=== PATIENT | female | born 1985 | race Caucasian/White ===

== ENCOUNTER → 2016-06-05 | Outpatient (CLI) | payer BC ==
[~2016-06-05] MED LIST: CHOL4POW6 PO; METR500T PO; PANT40TA PO; SERT50TA PO; ZNTT/150 PO
[2016-06-05 12:49] LABS: BLOOD UREA NITROGEN 11 mg/dl (7-18); CALCIUM 8.3 mg/dl (8.5-10.1); CARBON DIOXIDE 24 mmol/L (21-32); CHLORIDE 108 mmol/L (98-107); CREATININE 0.77 mg/dl (0.60-1.20); GLUCOSE 117 mg/dl (70-99); POTASSIUM 3.5 mmol/L (3.5-5.1); SODIUM 141 mmol/L (136-145)
[2016-06-05 13:06] LABS: ESTIMATED AVERAGE GLUCOSE 117 mg/dl; HA1C FLAG Normal (Normal)
[2016-06-07 13:25] LABS: CHLAMYDIA TRACH RNA*** NOT DETECTED (NOT DETECTED); GC (NEIS GONORRHOEAE)RNA** NOT DETECTED (NOT DETECTED)
== END | disposition home or self-care (01) ==
LOC: C.LABPVFM 08:26
PROVIDERS: ATTEND Nurse Practitioner Family
DX: Z00.00 Encounter for general adult medical examination without abnormal findings (principal); R73.01 Impaired fasting glucose

== ENCOUNTER → 2016-06-05 | Outpatient (CLI) | payer BC | END | disposition home or self-care (01) | LOC: C.PAPS 13:22 | PROVIDERS: ATTEND Nurse Practitioner Family | DX: Z01.419 Encounter for gynecological examination (general) (routine) without abnormal findings (principal) ==

== ENCOUNTER → 2016-09-04 | Outpatient (CLI) | payer BC ==
[2016-09-04 12:38] LABS: BLOOD UREA NITROGEN 11 mg/dl (7-18); BUN/CREATININE RATIO 13.1 (10-20); CALCIUM 9.2 mg/dl (8.5-10.1); CARBON DIOXIDE 31 mmol/L (21-32); CHLORIDE 106 mmol/L (98-107); CREATININE 0.82 mg/dl (0.60-1.20); GLUCOSE 131 mg/dl (70-99); POTASSIUM 3.6 mmol/L (3.5-5.1); SODIUM 141 mmol/L (136-145)
[2016-09-04 13:03] LABS: ESTIMATED AVERAGE GLUCOSE 126 mg/dl; HA1C FLAG Normal (Normal)
== END | disposition home or self-care (01) ==
LOC: C.LABPVFM 09:29
PROVIDERS: ATTEND Nurse Practitioner Family
DX: R73.01 Impaired fasting glucose (principal)

== ENCOUNTER → 2017-03-13 | Outpatient (CLI) | payer BC ==
[2017-03-13 13:16] LABS: ALB/GLOB RATIO 1.3 (0.9-2); ALKALINE PHOSPHATASE 65 U/L (45-117); ALT/SGPT 37 U/L (12-78); AST/SGOT 17 U/L (15-37); BLOOD UREA NITROGEN 11 mg/dl (7-18); BUN/CREATININE RATIO 13.8 (10-20); CALCIUM 8.6 mg/dl (8.5-10.1); CARBON DIOXIDE 27 mmol/L (21-32); CHLORIDE 108 mmol/L (98-107); CHOLESTEROL 137 mg/dl (0-200); CHOLESTEROL/HDL RATIO 3.5; GLUCOSE 117 mg/dl (70-99); HDL CHOLESTEROL 39 mg/dl; LDL CHOLESTEROL CALCULATED 79 mg/dl; POTASSIUM 3.6 mmol/L (3.5-5.1); SODIUM 141 mmol/L (136-145); TRIGLYCERIDES 97 mg/dl (0-150); VERY LOW DENSITY LIPOPROT CALC 19 mg/dl
[2017-03-13 14:13] LABS: ESTIMATED AVERAGE GLUCOSE 126 mg/dl; HA1C FLAG Normal (Normal)
== END | disposition home or self-care (01) ==
LOC: C.LABPVFM 08:10
PROVIDERS: ATTEND Nurse Practitioner Family
DX: I10 Essential (primary) hypertension (principal); R73.01 Impaired fasting glucose

== ENCOUNTER → 2017-06-26 | Outpatient (CLI) | payer BC ==
[2017-06-26 13:38] LABS: HEMOGLOBIN A1C 5.8 % (4.5-5.6)
== END | disposition home or self-care (01) ==
LOC: C.LABPVFM 08:53
PROVIDERS: ATTEND Nurse Practitioner Family
DX: R73.01 Impaired fasting glucose (principal)

== ENCOUNTER → 2017-07-25 | Outpatient (CLI) | payer BC ==
[~2017-07-25] MED LIST changes: +RANI150T85 PO; -ZNTT/150 PO
[2017-07-25 13:09] LABS: HEMATOCRIT 38.4 % (37-47); HEMOGLOBIN 13.2 g/dL (12.0-16.0); MEAN CORPUSCULAR HGB CONC 34.4 g/dl (32-36); MEAN PLATELET VOLUME 10.7 fL (7.4-10.4); PLATELET COUNT 246 K/uL (130-400); RED CELL DISTRIBUTION WIDTH CV 13.6 % (11.5-14.5); RED CELL DISTRIBUTION WIDTH SD 46.3 fL (36.4-46.3); WHITE BLOOD COUNT 7.29 K/uL (4.8-10.8)
== END | disposition home or self-care (01) ==
LOC: C.LAB1850 12:04
PROVIDERS: ATTEND Physician Assistant
DX: N92.0 Excessive and frequent menstruation with regular cycle (principal)

== ENCOUNTER → 2017-08-11 | Day surgery (SDC) | payer BC ==
[2017-08-04 13:30] VITALS: Ht 158.8 cm; Wt 89.5 kg
[~2017-08-11] VITALS: Ht 158.8 cm; Wt 89.5 kg
[~2017-08-11] MED LIST changes: +ATROPINE SULFATE 0.1 MG/ML 5ML SYR IV PRN; -CHOL4POW6 PO; +DEXAMETHASONE SOD INJ 4 MG/ML VIAL ONE; +EpHEDrine SULFATE INJ 50 MG/ML AMP IV PRN; +FENTANYL CITRATE INJ 50 MCG/1 ML 2 ML VIAL IV PRN; +FENTANYL CITRATE INJ 50 MCG/1 ML 2 ML VIAL ONE; +IBUPROFEN 600 MG TAB PO PRN; +KETOROLAC TROMETHAMINE 30 MG/ML VIAL IV. PRN; +KETOROLAC TROMETHAMINE 30 MG/ML VIAL ONE; +LACTATED RINGER'S 1000ML 1,000 ML IV SCH; +LIDOCAINE HCL 2% 2 ML VIAL (20MG/ML) ONE; -METR500T PO; +MIDAZOLAM HCL 1 MG/ML 2ML VIAL ONE; +ONDANSETRON INJ 2 MG/ML 2 ML VIAL IV PRN; +ONDANSETRON INJ 2 MG/ML 2 ML VIAL ONE; +OXYC-57 PO; +OXYCODONE/ACETAMINOPHEN 5-325 TAB PO PRN; -PANT40TA PO; +PROMETHAZINE HCL INJ 25 MG in SODIUM CHLORIDE 0.9% 50ML 50 ML IV PRN; +PROMETHAZINE HCL INJ 6.25 MG in SODIUM CHLORIDE 0.9% 50ML 50 ML IV PRN; +PROPOFOL IV EMULSION 10 MG/ML 20 ML VIAL IV ONE; -RANI150T85 PO; -SERT50TA PO; +SODIUM CHLORIDE 0.9% 1000ML 1,000 ML IV SCH
--- NOTE | 2017-08-11 07:37 | History & Physical Bridge Note ---
H&P Re-Evaluation Bridge Note: I have examined the patient, reviewed the History & Physical and in the interval since the performance of the History & Physical I have noted the following changes of clinical significance: No changes noted
--- NOTE | 2017-08-11 08:28 | [facility] Post Operative Brief Note ---
Immediate Operative Summary Operative Date Aug 11, 2017. Pre-Operative Diagnosis Menorrhagia Post-Operative Diagnosis Same Procedure(s) Performed Hysteroscopy D+C, [facility] endometrial ablation Surgeon Dr. Edwards Quality Improvement Coordinator (Rn) Surgeon(s) none Estimated Blood Loss 5ml Findings Consistent with Post-Op Diagnosis Specimens Endometrial curretings Drains None Anesthesia Type General Complication(s) none Disposition Disposition: Recovery Room / PACU
--- NOTE | 2017-08-11 08:29 | Discharge Instructions ---
Discharge Instructions Date of Service Aug 11, 2017. Admission Reason for Admission: Menorrhagia Discharge Discharge Diagnosis / Problem: menorrhagia Discharge Goals Goal(s): Routine recovery after surgery Activity Recommendations Activity Limitations: per Instructions/Follow-up section . Instructions / Follow-Up Instructions / Follow-Up ACTIVITY RECOMMENDATIONS: * Avoid tampons, douching, hot tubs, pools, and intercourse until bleeding has stopped. * May shower as usual. * No strenuous activity for 24-48 hours. After 24-48 hours, you may do anything you feel like doing (driving and sports are okay). SPECIAL CARE INSTRUCTIONS: Special Diet: * Mild nausea may occur in the immediate post-operative period. * Take clear liquids such as tea, cola or bouillon until all nausea has subsided; you may then resume your normal diet. Special Care: * Light bleeding and vaginal spotting can last from a few days to 3-4 weeks. Call your doctor if bleeding becomes heavier than the heaviest part of your period. * Check your temperature twice a day for one week. If it goes above 100.4 degrees Fahrenheit (38.0 Celsius), notify your doctor. * Call your doctor's office for an appointment for 6 weeks after your surgery. FOLLOW-UP VISIT: Call your doctor's office for an appointment for 6 weeks after your surgery. Current Hospital Diet Patient's current hospital diet: Discharge Diet Recommended Diet: Regular Diet Procedures Procedures Performed: Hysteroscopy D+C, rolerball endometrial ablation Pending Studies Studies pending at discharge: no Laboratory Results Hemoglobin A1c Test 06/26/17 09:00 Range/Units Estimated Average Glucose 120 mg/dl Hemoglobin A1c 5.8 H 4.5-5.6 % Medical Emergencies . Who to Call and When: Medical Emergencies: If at any time you feel your situation is an emergency, please call 911 immediately. . Non-Emergent Contact Non-Emergency issues call your: Clinical Informatics Spec . . "Provider Documentation" section prepared by Nader Edwards. .
[2017-08-11 09:14] VITALS: TEMP 36.5
--- NOTE | 2017-08-11 09:43 | Anesthesia Progress Nt - [facility] ---
Anesthesia Post Op Note Date & Time Aug 11, 2017 at 09:42 Vital Signs Pain Intensity: 0 Vital Signs Past 12 Hours Date Time Temp Pulse Resp B/P (MAP) Pulse Ox O2 Delivery O2 Flow Rate FiO2 08/11/17 09:14 36.5 87 20 142/80 (100) 99 Room Air 08/11/17 09:11 140/98 08/11/17 09:10 36.6 82 16 140/98 97 Room Air 08/11/17 09:07 83 13 08/11/17 09:07 82 13 97 08/11/17 09:06 142/89 08/11/17 09:02 81 18 08/11/17 09:02 80 18 100 08/11/17 09:01 137/97 08/11/17 08:57 82 17 100 08/11/17 08:57 82 17 08/11/17 08:56 139/96 08/11/17 08:53 137/95 08/11/17 08:52 84 18 100 08/11/17 08:52 84 18 08/11/17 08:51 144/107 08/11/17 08:47 85 17 100 08/11/17 08:47 86 17 08/11/17 08:46 152/100 08/11/17 08:42 85 18 08/11/17 08:42 83 18 100 08/11/17 08:41 154/106 08/11/17 08:39 153/115 08/11/17 08:38 129/115 08/11/17 08:37 36.5 92 16 154/100 96 Mask 6 08/11/17 06:48 36.5 86 16 144/98 (113) 100 Room Air Notes Mental Status: alert / awake / arousable, participated in evaluation Pt Amnestic to Procedure: Yes Nausea / Vomiting: adequately controlled Pain: adequately controlled Airway Patency, RR, SpO2: stable & adequate BP & HR: stable & adequate Hydration State: stable & adequate Anesthetic Complications: no major complications apparent
[2017-08-11 09:47] VITALS: BP 127/86; PULSE 78; O2SAT 97
--- NOTE | 2017-08-11 20:01 | OPERATIVE REPORT ---
DATE OF OPERATION: 08/11/2017 PREOPERATIVE DIAGNOSIS: Menorrhagia. POSTOPERATIVE DIAGNOSIS: Same. PROCEDURE: Hysteroscopy, D&C, endometrial ablation with roller ball. SURGEON: Nader Edwards MD. AUDIT MGR: None. ESTIMATED BLOOD LOSS: 5 mL. FINDINGS: Consistent with postop diagnosis. SPECIMENS: Endometrial curettings. DRAINS: None. ANESTHETIC: General. COMPLICATIONS: None. OPERATION AND FINDINGS: Shannan was given a general anesthetic, prepped and draped in dorsal lithotomy position in [facility]. Bladder drained. Uterus examined and found to be axial to anteverted. Weighted speculum placed in the vagina, single tooth tenaculum on the anterior lip of the cervix. Cervix then carefully and methodically dilated starting with a #13 dilator and progressing to a #25 dilator. On inspection with a 5 mm hysteroscope, the lining was somewhat thick. I could only see a tubal ostia on the patient's left side. I carefully looked for a right tubal ostia, but I could not see one. Uterus also appeared somewhat narrow. 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 Because of this, I decided to do a rollerball ablation instead of a NovaSure ablation. We changed fluid to 3% sorbitol, continued dilating to a #29 dilator, used the operative hysteroscope and the roller bar. Procedure was done by ablating the left-sided tubal ostia area and then the entire endometrium including the fundus. Once this was complete, hemostasis was excellent. The cavity was well ablated. Pictures taken for documentation. At the end of the procedure, sponge and instrument counts correct. The patient sent to recovery room in stable condition. I attest to the content of the Intraoperative Record and any orders documented therein. Any exception s are noted below.
== END | disposition home or self-care (01) ==
LOC: X.SURG 06:35
PROVIDERS: ATTEND Obstetrics & Gynecology
DX: N92.0 Excessive and frequent menstruation with regular cycle (principal); Z77.22 Contact with and (suspected) exposure to environmental tobacco smoke (acute) (chronic); I10 Essential (primary) hypertension; F41.9 Anxiety disorder, unspecified; F32.9 Major depressive disorder, single episode, unspecified; Z88.0 Allergy status to penicillin; Z91.018 Allergy to other foods; Z68.35 Body mass index [BMI] 35.0-35.9, adult; E66.9 Obesity, unspecified; Z83.49 Family history of other endocrine, nutritional and metabolic diseases; Z82.49 Family history of ischemic heart disease and other diseases of the circulatory system; Z83.3 Family history of diabetes mellitus; Z84.1 Family history of disorders of kidney and ureter; Z83.79 Family history of other diseases of the digestive system; Z80.0 Family history of malignant neoplasm of digestive organs; Z80.41 Family history of malignant neoplasm of ovary

== ENCOUNTER → 2017-12-25 | Outpatient (CLI) | payer BC ==
[~2017-12-25] MED LIST changes: -ATROPINE SULFATE 0.1 MG/ML 5ML SYR IV PRN; -DEXAMETHASONE SOD INJ 4 MG/ML VIAL ONE; -EpHEDrine SULFATE INJ 50 MG/ML AMP IV PRN; -FENTANYL CITRATE INJ 50 MCG/1 ML 2 ML VIAL IV PRN; -FENTANYL CITRATE INJ 50 MCG/1 ML 2 ML VIAL ONE; -IBUPROFEN 600 MG TAB PO PRN; -KETOROLAC TROMETHAMINE 30 MG/ML VIAL IV. PRN; -KETOROLAC TROMETHAMINE 30 MG/ML VIAL ONE; -LACTATED RINGER'S 1000ML 1,000 ML IV SCH; -LIDOCAINE HCL 2% 2 ML VIAL (20MG/ML) ONE; -MIDAZOLAM HCL 1 MG/ML 2ML VIAL ONE; -ONDANSETRON INJ 2 MG/ML 2 ML VIAL IV PRN; -ONDANSETRON INJ 2 MG/ML 2 ML VIAL ONE; -OXYCODONE/ACETAMINOPHEN 5-325 TAB PO PRN; -PROMETHAZINE HCL INJ 25 MG in SODIUM CHLORIDE 0.9% 50ML 50 ML IV PRN; -PROMETHAZINE HCL INJ 6.25 MG in SODIUM CHLORIDE 0.9% 50ML 50 ML IV PRN; -PROPOFOL IV EMULSION 10 MG/ML 20 ML VIAL IV ONE; -SODIUM CHLORIDE 0.9% 1000ML 1,000 ML IV SCH
[2017-12-25 13:17] LABS: HEMOGLOBIN A1C 6.2 % (4.5-5.6)
== END | disposition home or self-care (01) ==
LOC: C.LABPVFM 08:23
PROVIDERS: ATTEND Nurse Practitioner Family
DX: R73.01 Impaired fasting glucose (principal)

== ENCOUNTER 2018-12-25 05:37 | Observation (INO) ==
--- NOTE | 2018-12-07 14:44 | PAT Medication Instructions ---
Medication Instructions Date of Service December 07, 2018 Home Medications lisinopril 10 mg PO DAILY DO NOT take the morning of surgery lisinopril 10 mg PO DAILY Other Notes If you have any questions please call us at [phone] or [phone] or [phone] or [phone]
--- NOTE | 2018-12-08 11:27 | Anesthesiology Consultation ---
Date of Service December 08, 2018 Assessment & Plan (1) Encounter for pre-operative examination: - Check BSG, test AM DOS Chart Review Chart Review: Acceptable Risk for Surgery and Patient seen in Pre Admission Testing Teaching & Discussion Pre-Anesthesia Teaching/Discussion Notes: Instructed NPO after midnight before surgery,except medications with 15 cc of water. Medication instructions provided according to the PAT guidelines. History Surgery Operation Date: 12/25/18 07:30 Proposed Procedures p Robotic Total Laparoscopy Hysterectomy - Madai Edwards MD, FACOG Height/Weight Height: 5 ft 3 in Weight: 89.6 kg Allergies Allergy/AdvReac Type Severity Reaction Status Date / Time chocolate flavor Allergy Intermediate hives Verified 08/11/17 06:47 Penicillins Allergy Intermediate Anaphylaxis Verified 12/01/18 11:58 Medications Home Medications Medication Instructions Recorded Confirmed Last Taken lisinopril 10 mg PO DAILY 12/01/18 12/01/18 Unknown Past Medical History Medical History Anemia Anxiety Borderline diabetes diet controlled Hypertension Migraine Obesity Exercise / Class Metabolic Activity II 4-5 Yardwork/Stairs/Walk up hill Past Family History Family History Mother Family history of diabetes mellitus Father Family history of diabetes mellitus Sister Family history of diabetes mellitus Grandfather (Maternal) Family history of diabetes mellitus Past Surgical History Surgical History History of cholecystectomy LAP History of dilatation and curettage Hysteroscopy, D&C, endometrial ablation: 08/11/17: LMA#4 at [facility] [place] History of esophagogastroduodenoscopy (EGD) Past Anesthesia History No Family Hx of Anesthesia Complications and Other Emotional with anesthesia emergence* History of PONV No Hx of PONV and No Hx of Motion Sickness Social History Smoking Status: Never smoker Do You Dip or Chew Tobacco: No Hx Alcohol Use: No Hx Substance Use: No substance use type: does not use Review of Systems Patient denies chest pain, shortness of breath, dyspnea on exertion, reflux, cough, wheezing, palpitations. Physical Exam Vital Signs VITALS BP 137/90 P 80 TEMP 97.7 SP02 99%RA RESP 18 PHYSICAL Full neck and c-spine range of motion. Full TMJ range of motion. TMD 3.5 finger breaths Mallampati Score 2 Dentition: intact Lungs: clear throughout to auscultation Cardiac: regular rate and rhythm, no murmurs noted Spine: normal Extremities: no edema Testing Laboratory Results 12/08/18 12:20 12/08/18 12:20 Blood Type A Positive 12/08/18 12:20 Antibody Screen NEGATIVE 12/08/18 12:20 Electrocardiogram Date: 12/08/18 NSR at 81bpm. Rightward axis.
[2018-12-08 13:30] LABS: Basophils # (auto) 0.07 K/uL (0-0.2); Basophils % (auto) 0.9 %; Eosinophils # (auto) 0.07 K/uL (0-0.5); Eosinophils % (auto) 0.9 %; Hemoglobin 13.6 g/dL (12.0-16.0); Immature Granulocytes # (auto) 0.04 K/uL (0.00-0.02); Immature Granulocytes % (auto) 0.5 %; Lymphocytes # (auto) 1.76 K/uL (1.2-3.4); Lymphocytes % (auto) 22.8 %; Mean Corpuscular Volume 93.5 fL (80-100); Mean Platelet Volume 10.9 fL (7.4-10.4); Monocytes # (auto) 0.59 K/uL (0.11-0.59); Monocytes % (auto) 7.6 %; Neutrophils % (auto) 67.3 %; Platelet Count 241 K/uL (130-400); RDW Coefficient of Variation 13.2 % (11.5-14.5); RDW Standard Deviation 45.4 fL (36.4-46.3); Red Blood Count 4.28 M/uL (4.2-5.4); White Blood Count 7.73 K/uL (4.8-10.8)
[2018-12-08 14:39] LABS: BUN Creatinine Ratio 10.7 (10-20); Calcium 8.7 mg/dl (8.5-10.1); Creatinine Clr Calc Pharmacy 104.2 ml/min; Est GFR (African American) 110.7; Est GFR (Non-African American) 95.5; Potassium 3.8 mmol/L (3.5-5.1)
[2018-12-25] MEDS ORDERED: GENTAMICIN SULFATE 130 MG in DEXTROSE 5% 100 ML IV SCH (06:00)
[2018-12-25] MEDS ORDERED: CLINDAMYCIN 600 MG/54 ML BAG IV SCH (06:00)
[2018-12-25] MEDS ORDERED: LACTATED RINGER'S 1,000 ML IV SCH ×2 (06:00→11:40)
[2018-12-25] MEDS: LR 500ML BOLUS, THEN 15ML/HR IV SCH ×2 (06:30)
[2018-12-25] MEDS ORDERED: fentaNYL citrate 100 MCG/2 ML VIAL ONE ×2 (07:01→08:14)
[2018-12-25] MEDS ORDERED: MIDAZOLAM HCL 1 MG/ML 2ML VIAL ONE (07:01)
[2018-12-25] MEDS ORDERED: BUPIVACAINE 0.5 % 5 MG/1 ML MPF 30ML VIAL ONE (07:02)
[2018-12-25] MEDS ORDERED: LABETALOL HCL IV 5 MG/ML 20ML IV PRN (07:05)
[2018-12-25] MEDS ORDERED: ePHEDrine sulfate 50 MG/ML AMP IV PRN (07:05)
[2018-12-25] MEDS ORDERED: MEPERIDINE HCL 25 MG/ML CARP IV PRN (07:05)
[2018-12-25] MEDS ORDERED: ATROPINE SULFATE 0.1 MG/ML 10ML SYR IV PRN (07:05)
[2018-12-25] MEDS ORDERED: HYDROmorphone INJ 1 MG/ML SYRINGE IV PRN (07:05)
[2018-12-25] MEDS ORDERED: ONDANSETRON INJ 2 MG/ML 2 ML VIAL IV PRN ×2 (07:05→11:40)
[2018-12-25] MEDS ORDERED: PHENYLEPHRINE 100MCG/ML 5ML SYR IV PRN (07:05)
[2018-12-25] MEDS ORDERED: ACETAMINOPHEN 1000 MG/100 ML IV IV ONE (07:07)
--- NOTE | 2018-12-25 07:18 | History & Physical Bridge Note ---
Date of Service December 25, 2018 History & Physical Bridge Note I have examined the patient, reviewed the History & Physical and in the interval since the performance of the History & Physical I have noted the following changes of clinical significance: no changes noted
[2018-12-25] MEDS ORDERED: GLYCOPYRROLATE 0.2 MG/ML VIAL ONE (07:46)
[2018-12-25] MEDS ORDERED: ONDANSETRON INJ 2 MG/ML 2 ML VIAL ONE ×2 (07:46)
[2018-12-25] MEDS ORDERED: NEOSTIGMINE METHYLSULFATE 5 MG/5 ML SYR ONE (07:46)
[2018-12-25] MEDS ORDERED: DEXAMETHASONE SOD INJ 4 MG/ML VIAL ONE (07:46)
[2018-12-25] MEDS ORDERED: PROPOFOL IV EMULSION 10 MG/ML 20 ML VIAL IV ONE (07:46)
[2018-12-25] MEDS ORDERED: ROCURONIUM BROMIDE 10 MG/ML 5 ML VIAL ONE (07:46)
[2018-12-25] MEDS ORDERED: LIDOCAINE HCL 2% 2 ML VIAL/AMP(20MG/ML) INFIL ONE (07:46)
[2018-12-25] MEDS ORDERED: TISSEEL FIBRIN SEALANT 4ML TOP ONE (08:27)
[2018-12-25] MEDS ORDERED: METHYLENE BLUE 0.5% 10 ML VIAL IV SCH (08:45)
--- NOTE | 2018-12-25 09:22 | Operative Report ---
Post Operative Report Pre & Post Diagnosis Operation Date: 12/25/18 07:30 Pre-Op Diagnosis: Menorrhagia Post-Op Diagnosis: Menorrhagia Procedure Operation Date: 12/25/18 07:30 Actual Procedures p Robotic Total Laparoscopy Hysterectomy, Bilateral Salpingectomy, Cystoscopy - Madai Edwards MD, FACOG Surgeon Madai Edwards MD, FACOG Lead Java Software Engineer Dr. Mott Estimated Blood Loss 10 Findings Consistent with Post-Op Diagnosis Specimens uterus, cervix, tubes Description of Procedure Patient given a general anesthetic prepped and draped in dorsal lithotomy position in [facility] care taken on positioning Richter catheter placed in her bladder V care placed in her uterus and sewn in place glove change. Supraumbilical incision made with scalpel using Marroquin technique we did a cutdown to entered the peritoneal cavity blunt-tipped Marroquin trocar placed balloon inflated to stabilize the port CO2 gas used to insufflate the abdomen. Findings upper abdomen normal no sign of visceral organ injury deep Trendelenburg position then obtained uterus was visualized appeared normal there was a area of endometriosis on the left uterosacral in the left pelvic sidewall just lateral to this both ovaries appeared normal as did the rest of the pelvic anatomy ureters followed in normal course 2 robotic ports one on the left one on the right placed a left upper quadrant 11 mm blade less port then placed robot docked arm #1 was the monopolar shy arm #2 was the bipolar [place] procedure was begun first by identifying course of the ureters we then remove the fallopian tubes first in the left and the right side and these were removed through the accessory port ureter on the left side was identified this was well away from the utero-ovarian blood supply we then coagulated the utero-ovarian blood supply with the [place] cut this with monopolar shy coagulate and cut the round ligament and then carefully skeletonized the uterine vessels on the left side bladder flap was sharply dissected away. We identified in the vessels on the left side these were coagulated and cut of note we were away from the left ureter identified the left endometriosis area this was superficially resected primarily without the use of electrosurgery and was removed through the accessory port. This was a small nodule that was removed On the right side we performed the exact same process of identifying the ureter coagulating the blood supply distal to the right ovary and then cutting with monopolar shy same process with the round ligament uterine vessels skeletonized bladder flap fully dissected away and then uterine vessels coagulated and cut with the monopolar shy coagulated with the bipolar [place] first. At this stage monopolar shy were used to make the colpotomy this was completed uterus was then pulled into the uterus to maintain pneumoperitoneum Instrument exchange occurred arm #1 became the EGA needle equipment driver arm #2 became the Carlyle grasper methylene blue given by anesthesia using a 12 inch 2 oh 90-day V lock suture cuff was then closed from left to right back right to left ensuring at least 1 cm full-thickness bites of vaginal mucosa at this stage suture was cut so there was no tail the hemostasis was excellent force milliliters of Tisseel was applied to the pedicles cystoscopy was performed at this stage reviewed and normal bladder no sutures good strong jets of bluish dye from both left and right ureter openings no lesions seen cystoscope removed and a new Richter catheter placed uterus had been removed from the vagina there was no bleeding at this stage. Under a low pressure test there was no bleeding on the pedicles intraperitoneal and then at this stage robot undocked ports removed gas allowed to escape incisions injected with 0.5% Marcaine fascia closed with 0 Vicryl in the umbilical and left upper quadrant incisions were and then 4-0 Monocryl closure of the skin incisions subcuticular Dermabond applied sponge and instruments correct I attest to the content of the Intraoperative Record and any orders documented therein. Any exceptions are noted below.
--- NOTE | 2018-12-25 09:47 | Anesthesiology Progress Note ---
Date of Service December 25, 2018 Anesthesia Post Procedure Vital Signs Vital Signs: Temp Pulse Pulse Resp BP Pulse Ox 12/25/18 09:35 101 H 16 135/97 100 12/25/18 09:25 90 14 144/84 H 100 12/25/18 09:19 36.1 C L 101 H 16 150/98 H 100 12/25/18 06:15 36.8 C 96 H 18 137/94 100 Transfer of Care Handoff Completed per policy Notes Mental Status: alert / awake / arousable Patient Amnestic to Procedure: Yes Nausea / Vomiting: adequately controlled Pain: adequately controlled Airway Patency, RR, SpO2: stable & adequate BP & HR: stable & adequate Hydration State: stable & adequate Anesthetic Complications: no major complications apparent and Pt Satisfied with anesthetic care
[2018-12-25] MEDS: fentaNYL citrate 100 MCG/2 ML VIAL IV PRN ×2 (10:03→10:08)
[2018-12-25] MEDS ORDERED: KETOROLAC 30 MG/ML VIAL IV PRN (11:40)
[2018-12-25] MEDS ORDERED: MEPERIDINE HCL 50 MG/ML CARP IV PRN (11:40)
[2018-12-25] MEDS ORDERED: ACETAMINOPHEN 325 MG TAB PO PRN (11:40)
[2018-12-25] MEDS ORDERED: BISACODYL 10 MG SUPP PR PRN (11:40)
[2018-12-25] MEDS ORDERED: PROMETHAZINE HCL 25 MG in SODIUM CHLORIDE 0.9% 50 ML IV PRN (11:40)
[2018-12-25] MEDS ORDERED: OXYCODONE/ACETAMINOPHEN 5mg/325mg TAB PO PRN ×2 (11:40)
[2018-12-25] MEDS ORDERED: IBUPROFEN 600 MG TAB PO PRN (11:40)
[2018-12-25] MEDS ORDERED: MAGNESIUM HYDROXIDE SUSP 30 ML UDC PO PRN (11:40)
[2018-12-25] MEDS ORDERED: SIMETHICONE 80 MG CHEW PO PRN (11:40)
[2018-12-25] MEDS ORDERED: PROMETHAZINE HCL 12.5 MG in SODIUM CHLORIDE 0.9% 50 ML IV PRN (11:40)
[2018-12-25] MEDS ORDERED: ZOLPIDEM TARTRATE 5 MG TAB PO PRN (11:40)
[2018-12-25] MEDS ORDERED: DOCUSATE SODIUM 100 MG CAP PO SCH (21:00)
[2018-12-26] MEDS ORDERED: LISINOPRIL 10 MG TAB PO SCH (09:00)
--- NOTE | 2018-12-28 10:24 | Discharge Summary ---
Date of Service December 28, 2018 Patient had a total laparoscopic hysterectomy on December 25 and met criteria to go home on POD0 At that time she was ambulating well. Tolerating an oral diet. Pain was well controlled. No extremity pain. No bleeding. Voiding well. Discharge instructions were reviewed and prescriptions for pain control were sent and discussed. Patient advised to call with any concerns and follow up discussed including limitations on activity. Admission Exam (Per Admitting) Constitutional WD/WN, vitals as above Gastrointestinal (Abdomen) normal bowel sounds, soft, nontender, no hepatosplenomegaly ext neg Discharge Data Procedures Performed Operation Date: 12/25/18 07:30 Actual Procedures p Robotic Total Laparoscopy Hysterectomy, Bilateral Salpingectomy, - Madai Edwards MD, FACOG s Cystoscopy - Madai Edwards MD, FACOG Hospital Course (1) Menorrhagia: home
== END 2018-12-25 16:22 | disposition home or self-care (01) ==
LOC: 4N 05:37 → ASU 05:37